=== PATIENT | female | born 1995 | race Caucasian/White ===

== ENCOUNTER 2018-10-07 13:45 | Observation (INO) | payer BC, OTHER ==
--- NOTE | 2018-10-07 13:53 | PDOC ---
Rapid Medical Evaluation Time Seen by Provider: 10/07/18 13:51 Medical Evaluation: 10/07/18 13:51 I have performed a brief in-person evaluation of this patient. The patient presents with a chief complaint of: left sided abdominal pain x2 days Pertinent physical exam findings: OP-WNL. Left abdomen TTP with guarding I have ordered the following: labs, urine, CTAP, strep The patient will proceed to the ED for further evaluation. Discharge Disposition - Diagnosis Abdominal pain - Referrals - Patient Instructions - Post Discharge Activity
[2018-10-07] MEDS ORDERED: SODIUM CHLORIDE 1,864 ML IV ONE (13:54)
--- NOTE | 2018-10-07 14:22 | PDOC ---
History of Present Illness - General Chief Complaint: Pain, Acute Stated Complaint: SENT BY PCP/FEVER Time Seen by Provider: 10/07/18 13:51 - History of Present Illness Initial Comments: 10/07/18 16:49 22yo F no MH sent by PCP Dr Monroe for fever 102.8. Pt has had increased urinary frequency and urgency for 1wk. Denies hx of UTIs or dysuria or hematuria. Then 2 days ago pt developed a subjective fever and headache, intermittent, pounding, bitemporal. Over the past 2 days, pt c/o fatigue, neck pain, lightheadedness, "seeing stars", discomfort with swallowing, one episode of NBNB emesis; and L-sided abdominal pain, sharp, constant, worse with standing /moving/deep breaths. Pt states she had similar sx last year but believes it was just viral and went away on its own. Endorses headaches similar to this but infrequently. Fully immunized, UTD. Denies sick contacts, travel, CP, SOB, vertigo, photophobia, back pain, dysuria, hematuria, D/C, blood in stool, numbness/tingling, focal weakness. Past History - Past Medical History Allergies/Adverse Reactions: Allergies Allergy/AdvReac Type Severity Reaction Status Date / Time No Known Allergies Allergy Verified 10/07/18 13:51 Home Medications: Ambulatory Orders NK [No Known Home Medication] 10/07/18 COPD: Yes - Immunization History Immunization Up to Date: Yes - Suicide/Smoking/Psychosocial Hx Smoking History: Never smoked Hx Alcohol Use: No Drug/Substance Use Hx: No Review of Systems - Review of Systems Comments:: 10/08/18 02:11 Constitutional: Positive for chills, fever, fatigue. HENT: Positive for discomfort with swallowing. Negative for sore throat, rhinorrhea, congestion. Eyes: Positive for "seeing stars." Negative for double vision, photophobia, or blurry vision. Respiratory: Negative for shortness of breath, cough, and wheezing. Cardiovascular: Negative for chest pain, palpitations, and leg swelling. Gastrointestinal: Positive for LUQ pain and 1 episode of emesis. Negative for blood in stool, constipation, diarrhea, nausea. Genitourinary: Positive for increased frequency and urgency. Negative for dysuria, flank pain, and hematuria. Musculoskeletal: Positive for neck pain. Negative for myalgias, back pain. Skin: Negative for rash. Neurological: Positive for headache, light-headedness, dizziness. Negative for syncope, weakness, numbness. Psychiatric/Behavioral: Negative for behavioral problems and confusion. *Physical Exam - Vital Signs Last Vital Signs Temp Pulse Resp BP Pulse Ox 102.8 F H 130 H 18 116/67 100 10/07/18 13:52 10/07/18 13:52 10/07/18 13:52 10/07/18 13:52 10/07/18 13:52 - Physical Exam Comments: 10/08/18 02:07 Gen: Alert, NAD, comfortable-appearing. HEENT: PERRL, EOMI, MMM, NCAT. No conjunctival pallor. Sclera are non-icteric. Oropharynx is clear, no erythema/exudates, uvula midline. No lymph node swelling /TTP. Neck supple, no pain with flexion or extension. CV: Regular rate and rhythm. No murmurs, rubs, or gallops. PULM: No resp distress. CTAB, no wheezes, rales, or rhonchi. ABD: TTP LUQ, soft, ND, no rebound tenderness or guarding, no CVA tenderness. BACK: No TTP of c/t/l-spine. No step-offs or deformities. MSK: No bony deformities. 2+ pulses in all extremities. NEURO: AAOx3. PERRL. CN 2-12 intact. 5/5 strength in all extremities. Sensation to light touch intact in all extremities. No pronator drift. No dysmetria. No dysdiadochokinesia. No abnormal nystagmus. No skew deviation. Normal gait. EXTREMITIES: No cyanosis. No clubbing. No edema. No calf tenderness. PSYCH: Normal mood and thought pattern. SKIN: Warm and dry. Normal capillary refill. No rashes. No jaundice. Heart Score/ECG Review - ECG Impressions Comment:: 10/07/18 17:03 Sinus tachycardia, 113 bpm, normal axis, TWI V2, no STEs ED Treatment Course - LABORATORY CBC & Chemistry Diagram: 10/07/18 14:12 10/07/18 14:12 Medical Decision Making - Medical Decision Making 22yo F no MH sent by PCP Dr Monroe for fever 102.8, increased urinary frequency and urgency x1wk, and 2 days of F/C, headache, fatigue, neck pain, lightheadedness, "seeing stars", discomfort with swallowing, one episode of NBNB emesis, and L-sided abdominal pain. Tachycardic, febrile. Most likely UTI due to initial symptom of urinary frequency/urgency, L-sided abdominal pain, and LUQ TTP. Headache most likely tension headache radiating to neck due to type and location and consistency with previous headaches. No trauma or neurologic deficits concerning for intracranial hemorrhage. Neck supple with full ROM, UTD immunizations, lack of photophobia, and consistency of headache with tension headaches makes meningitis of low concern - no need for further testing at this time. Throat appears normal with no erythema, exudates, or uvula deviation, but discomfort with swallowing indicates possible strep vs viral pharyngitis - strep test already obtained in [facility]. Due to tachycardia and fever, sepsis workup begun in [facility] including 1L IVF. Also consider other infectious etiologies such as cholecystitis or a viral URI - obtain labs and reassess. -Sepsis workup started by [facility] including: --CXR --EKG --CBC, CMP, Coags, VBG, cardiac profile, group A strep, Lact, UA/UC, BC, throat Cx --1L IVF -Add Tylenol for fever -Dispo: pending w/u EKG reviewed. CXR reviewed. No acute findings. Labs reviewed. Of note, WBC 12.7, Cr 1.4, BUN 15.6. UA: + nitrites, 2+ leuk est , 258 WBC, 630 bacteria. UTI on UA. Discussed antibiotic options and benefits and risks/side effects of each. Pt would like to take Bactrim 14 days. Will give 1st dose here and make sure vitals normalized before discharge. 10/07/18 16:16 Pt still tachycardic to 110 and feels warm. Order another 1L IVF and motrin ( last 0700). Will repeat temperature as well. Pt eating sandwich and juice. 10/07/18 17:29 Repeat BP 120/48. Incorrect cuff size was being used - smaller cuff size used for repeat. Pt feeling better. 2nd L IVF being run. Per Dr Palacios, pt spoke with PCP Dr Monroe and decision made to admit. Dr Palacios admitted. *DC/Admit/Observation/Transfer Diagnosis at time of Disposition: Pyelonephritis - Discharge Dispostion Condition at time of disposition: Stable Decision to Admit order: Yes - Referrals - Patient Instructions - Post Discharge Activity
[2018-10-07 14:43] LABS: VENOUS PC02 41.3 mmHg (41-51); VENOUS PH 7.39 (7.31-7.41)
[2018-10-07 14:44] LABS: VENOUS PO2 20.4 mmHg (30-40)
[2018-10-07 14:54] LABS: BASO % 0.1 % (0-2.0); HEMATOCRIT 34.2 % (32.4-45.2); HEMOGLOBIN 11.5 GM/dL (10.7-15.3); LYMPH % 5.2 % (8-40); MCH 31.2 pg (25.7-33.7); MCHC 33.6 g/dl (32.0-36.0); MEAN CELL VOLUME 92.9 fl (80-96); MEAN PLT VOLUME 9.2 fl (7.5-11.1); MONO % 8.8 % (3.8-10.2); NEUT % 85.9 % (42.8-82.8); PLATELET COUNT 157 K/MM3 (134-434); RBC 3.68 M/mm3 (3.60-5.2); RDW 12.5 % (11.6-15.6); WHITE BLOOD COUNT 12.7 K/mm3 (4.0-10.0)
[2018-10-07 15:00] LABS: EPI CELLS 1.4 /HPF (0-5/HPF); HYALINE CASTS 8 /lpf (0-8); PH,URINE 5.5 (5.0-8.0); URINE APPEARANCE CLOUDY; URINE BACTERIA 630.9 /hpf (NEGATIVE); URINE BILIRUBIN NEGATIVE (NEGATIVE); URINE COLOR DK YELLOW; URINE GLUCOSE (UA) NEGATIVE (NEGATIVE); URINE KETONE 2+ (NEGATIVE); URINE LEUK ESTERASE 2+ (NEGATIVE); URINE NITRITE POSITIVE (NEGATIVE); URINE PROTEIN 2+ (NEGATIVE); URINE RBC 4 /hpf (0-4); URINE WBC 258 /hpf (0-5)
[2018-10-07] MEDS ORDERED: ACETAMINOPHEN 500 MG TABLET (FP) PO ONE (15:02)
[2018-10-07 15:08] LABS: ALBUMIN 3.5 g/dl (3.4-5.0); BILIRUBIN,TOTAL 1.1 mg/dL (0.2-1); BLOOD UREA NITROGEN 15.6 mg/dL (7-18); CALCIUM 8.8 mg/dL (8.5-10.1); CREATININE 1.4 mg/dL (0.55-1.3); POTASSIUM 3.9 mmol/L (3.5-5.1); TOT PROT 7.4 g/dl (6.4-8.2)
[2018-10-07] MEDS ORDERED: ACETAMINOPHEN 325 MG TABLET (FP) ONE (15:08)
[2018-10-07 15:10] LABS: INR 1.39 (0.83-1.09); PROTHROMBIN TIME (PATIENT) 16.5 SEC (9.7-13.0)
[2018-10-07 15:12] LABS: ACTIVATED PTT 29.2 SECONDS (25.2-36.5)
[2018-10-07] MEDS ORDERED: SULFAMETHOXAZOLE/TRIMETHOPRIM 800MG/160MG D.S. TABLET PO ONE (15:56)
[2018-10-07] MEDS ORDERED: SODIUM CHLORIDE 0.9% 500 ML INFUS.BAG IV ONE (16:05)
--- NOTE | 2018-10-07 16:05 | PDOC ---
Documentation entered by Jacqueline Chris SCRIBE, acting as scribe for Kevin Stewart MD. Kevin Stewart MD: This documentation has been prepared by the scribe, Jacqueline Chris SCRIBE, under my direction and personally reviewed by me in its entirety. I confirm that the documentation accurately reflects all work, treatment, procedures, and medical decision making performed by me. Attending Attestation - Resident Resident Name: AdityaVeena - ED Attending Attestation I have performed the following: I have examined & evaluated the patient, The case was reviewed & discussed with the resident, I agree w/resident's findings & plan, Exceptions are as noted - HPI HPI: 10/07/18 15:02 22y F no known pmhx presents with complaint of fever/headache/abdominal pain. Pt endorses having urinary freuqency for approx 1 week, followed by fever/ headache/abd pain x 3 days. She went to her PMD who referred her to the ED for evlauation. The pt endorses nbnb vomiting x 1, denies any cp, sob, cough, diarrhea, melena, bpr. GENERAL: The patient is awake, alert, and fully oriented, Nontoxic - in no acute distress. HEAD: Normocephalic, atraumatic. EYES: extraocular movements intact, sclera anicteric, conjunctiva clear. ENT: Normal voice, Moist mucous membranes. NECK: Normal range of motion, supple, negative brusiznski/kernigs LUNGS: Breath sounds equal, clear to auscultation bilaterally. No wheezes, no rhonchi, no rales. HEART: tachycardic, normal S1 and S2 without murmur, rub or gallop. ABDOMEN: L CVA tenderness, mild L abd pain EXTREMITIES: Normal range of motion, no edema. NEUROLOGICAL: No facial assymetry, Normal speech, PSYCH: Normal mood, normal affect. SKIN: hot to touch, Dry, normal turgor, - Physicial Exam PE: 10/07/18 17:28 see above - Medical Decision Making 10/07/18 15:25 lbas reviewed UA + = suspect pyelonephritis will continue to hyration and tx with abx 10/07/18 17:28 pt appears well and feeling better in no distress labs reviewed +leukocytosis pt stll slightly tachy, suspect driven by fever. given motrin, awaiting fever defeversence and reassess signed out to evening team 10/07/18 17:29 Heart Score/ECG Review - ECG Impressions Comment:: 10/07/18 16:02 Twelve-lead EKG was performed and reviewed by me. There is normal sinus rhythm with a rate of 113 The axis is normal. The intervals are normal. There is normal R wave progression There are no ST or T wave abnormalities. sinus tachycardia
[2018-10-07] MEDS ORDERED: IBUPROFEN 600 MG TABLET (FP) PO ONE ×2 (16:15→16:55)
[2018-10-07] MEDS ORDERED: SULFAMETHOXAZOLE/TRIMETHOPRIM 800MG/160MG D.S. TABLET ONE (16:55)
--- NOTE | 2018-10-07 17:04 | EKG ---
Test Reason : Blood Pressure : / mmHG Vent. Rate : 113 BPM Atrial Rate : 113 BPM P-R Int : 142 ms QRS Dur : 076 ms QT Int : 304 ms P-R-T Axes : 044 013 028 degrees QTc Int : 416 ms SINUS TACHYCARDIA POSSIBLE LEFT ATRIAL ENLARGEMENT BORDERLINE ECG NO PREVIOUS ECGS AVAILABLE Confirmed by MD Lan, Mitch ([id number]) on 10/07/2018 5:03:36 PM Referred By: Confirmed By:Mitch Montenegro MD
--- NOTE | 2018-10-07 17:56 | PDOC ---
*Physical Exam - Vital Signs Last Vital Signs Temp Pulse Resp BP Pulse Ox 99.5 F 108 H 18 92/40 L 99 10/07/18 17:00 10/07/18 17:00 10/07/18 13:52 10/07/18 17:00 10/07/18 17:00 ED Treatment Course - LABORATORY CBC & Chemistry Diagram: 10/07/18 14:12 10/07/18 14:12 - ADDITIONAL ORDERS Additional order review: Laboratory Results 10/07/18 10/07/18 10/07/18 14:12 14:12 14:12 PT with INR INR PTT (Actin FS) VBG pH 7.39 POC VBG pCO2 41.3 POC VBG pO2 20.4 L VBG HCO3 24.2 VBG O2 Sat (Jennie) 27.8 L VBG Base Excess -0.3 Sodium Potassium Chloride Carbon Dioxide Anion Gap BUN Creatinine Est GFR (CKD-EPI)AfAm Est GFR (CKD-EPI)NonAf Random Glucose Lactic Acid Calcium Total Bilirubin AST ALT Alkaline Phosphatase Troponin I Total Protein Albumin Urine Color Dk yellow Urine Appearance Cloudy Urine pH 5.5 Ur Specific Filer 1.021 Urine Protein 2+ H Urine Glucose (UA) Negative Urine Ketones 2+ H Urine Blood 2+ H Urine Nitrite Positive H Urine Bilirubin Negative Urine Urobilinogen 1.0 Ur Leukocyte Esterase 2+ H Urine WBC (Auto) 258 Urine RBC (Auto) 4 Urine Casts (Auto) 8 U Epithel Cells (Auto) 1.4 Urine Bacteria (Auto) 630.9 Urine HCG, Qual Negative 10/07/18 10/07/18 10/07/18 14:12 14:12 14:12 PT with INR 16.50 H INR 1.39 H PTT (Actin FS) 29.2 VBG pH POC VBG pCO2 POC VBG pO2 VBG HCO3 VBG O2 Sat (Jennie) VBG Base Excess Sodium 135 L Potassium 3.9 Chloride 101 Carbon Dioxide 24 Anion Gap 10 BUN 15.6 Creatinine 1.4 H Est GFR (CKD-EPI)AfAm 62.09 Est GFR (CKD-EPI)NonAf 53.57 Random Glucose 101 Lactic Acid Calcium 8.8 Total Bilirubin 1.1 H AST 12 L ALT 16 Alkaline Phosphatase 64 Troponin I < 0.02 Total Protein 7.4 Albumin 3.5 Urine Color Urine Appearance Urine pH Ur Specific Filer Urine Protein Urine Glucose (UA) Urine Ketones Urine Blood Urine Nitrite Urine Bilirubin Urine Urobilinogen Ur Leukocyte Esterase Urine WBC (Auto) Urine RBC (Auto) Urine Casts (Auto) U Epithel Cells (Auto) Urine Bacteria (Auto) Urine HCG, Qual 10/07/18 14:00 PT with INR INR PTT (Actin FS) VBG pH POC VBG pCO2 POC VBG pO2 VBG HCO3 VBG O2 Sat (Jennie) VBG Base Excess Sodium Potassium Chloride Carbon Dioxide Anion Gap BUN Creatinine Est GFR (CKD-EPI)AfAm Est GFR (CKD-EPI)NonAf Random Glucose Lactic Acid 1.4 Calcium Total Bilirubin AST ALT Alkaline Phosphatase Troponin I Total Protein Albumin Urine Color Urine Appearance Urine pH Ur Specific Filer Urine Protein Urine Glucose (UA) Urine Ketones Urine Blood Urine Nitrite Urine Bilirubin Urine Urobilinogen Ur Leukocyte Esterase Urine WBC (Auto) Urine RBC (Auto) Urine Casts (Auto) U Epithel Cells (Auto) Urine Bacteria (Auto) Urine HCG, Qual 10/07/18 14:12 RBC 3.68 MCV 92.9 MCHC 33.6 RDW 12.5 MPV 9.2 Neutrophils % 85.9 H Lymphocytes % 5.2 L Monocytes % 8.8 Eosinophils % 0.0 Basophils % 0.1 - RADIOLOGY Radiology Studies Ordered: Category Date Time Status KIDNEY / RENAL US [US] Stat Ultrasound 10/07/18 17:50 Ordered - Medications Given in the ED: ED Medications Discontinued Medications Generic Name Dose Route Start Last Admin Trade Name Freq PRN Reason Stop Dose Admin Acetaminophen 975 mg 10/07/18 15:02 10/07/18 15:10 Tylenol - PO 10/07/18 15:03 975 mg ONCE ONE Administration Sodium Chloride 1,864 mls @ 932 mls/hr 10/07/18 13:54 10/07/18 14:22 Normal Saline - 30 ml/kg infuse over 2 hr (1864 ml) 10/07/18 15:53 932 mls/ hr IV Administration ONCE ONE Ibuprofen 600 mg 10/07/18 16:15 10/07/18 16:59 Motrin - PO 10/07/18 16:16 600 mg ONCE ONE Administration Sodium Chloride 1,000 ml 10/07/18 16:05 10/07/18 16:58 Normal Saline - IV 10/07/18 16:06 1,000 ml ONCE ONE Administration Trimethoprim/Sulfamethoxazole 1 each 10/07/18 15:56 10/07/18 16:58 Bactrim Ds - PO 10/07/18 15:57 1 each ONCE ONE Administration Medical Decision Making - Medical Decision Making 10/07/18 17:[address] Benigno Monroe, requesting admission. Options discussed with patient, now says that she wants to stay. Admission ordered. Kidney US requested, ordered. Patient accepted by Dr Monroe. *DC/Admit/Observation/Transfer Diagnosis at time of Disposition: Pyelonephritis - Discharge Dispostion Condition at time of disposition: Stable - Referrals Referrals: Benigno Monroe MD [Staff Physician] - - Patient Instructions Printed Discharge Instructions: DI for Kidney Infection Additional Instructions: You have been seen in the Emergency Department for your fever, headaches, and left-sided stomach pain. Your tests show that you have a UTI (Urinary tract infection) which appears to involve your bladder and kidney. We have prescribed you Bactrim, an antibiotic. Take it as directed on the bottle: two times a day for 14 days. Even if you feel better, make sure you finish all the doses. Follow-up with your primary care doctor Dr. Monroe within 1 week. Return to the ED immediately if you can't keep down your food or medications, or experience vomiting, severe pain, or any other new or worsening symptom. - Post Discharge Activity
--- NOTE | 2018-10-07 18:21 | HP ---
Admitting History and Physical - Admission Chief Complaint: c/o increased urination chill temp headache n/v all x 2 days. u/a showed in my office ketosis and blood ? may be spoty menses. excruciating lt sided abd pain scale. admiited pt under observation ordered sono kidneys at the reluctance of [age] yr resident whom wanted to send her home. pt n/v can not keep food down nor ? atxbs r/o out stones ect gram neg seosis high mortality sedpyleonephrits preven abcess scarring in kidneys not unresonable to admitt at least observation plus cr 1.4 in 22 yr old pt History Source: Patient Limitations to Obtaining History: No Limitations - Past Medical History Gastrointestinal: Yes: Other (lt side pain) Renal/: Yes: Renal Inusuff, Hematuria Infectious Disease: Yes: Other (pyleonephitis) - Past Surgical History Past Surgical History: Yes: None - Smoking History Smoking history: Never smoked - Alcohol/Substance Use Hx Alcohol Use: No History of Substance Use: reports: None - Social History Usual Living Arrangement: Yes: With Parent ADL: Independent History of Recent Travel: No Home Medications - Allergies Allergies/Adverse Reactions: Allergies Allergy/AdvReac Type Severity Reaction Status Date / Time No Known Allergies Allergy Verified 10/07/18 13:51 - Home Medications Home Medications: Ambulatory Orders NK [No Known Home Medication] 10/07/18 Family Disease History - Family Disease History Family History: Unremarkable Review of Systems - Review of Systems Constitutional: reports: Loss of Appetite HENT: reports: No Symptoms Neck: reports: No Symptoms Cardiovascular: reports: No Symptoms Respiratory: reports: No Symptoms Gastrointestinal: reports: Abdominal Pain Genitourinary: reports: Frequency, Hematuria Breasts: reports: No Symptoms Reported Musculoskeletal: reports: No Symptoms Integumentary: reports: No Symptoms Neurological: reports: No Symptoms Endocrine: reports: No Symptoms Hematology/Lymphatic: reports: No Symptoms Psychiatric: reports: No Symptoms Physical Examination Vital Signs: Vital Signs Temperature 99.5 F 10/07/18 17:00 Pulse Rate 108 H 10/07/18 17:00 Respiratory Rate 18 10/07/18 13:52 Blood Pressure 92/40 L 10/07/18 17:00 O2 Sat by Pulse Oximetry (%) 99 10/07/18 17:00 Labs: CBC, BMP 10/07/18 14:12 10/07/18 14:12 Problem List - Problems (1) Acute renal insufficiency Code(s): N28.9 - DISORDER OF KIDNEY AND URETER, UNSPECIFIED (2) Starvation ketoacidosis Code(s): E87.2 - ACIDOSIS Assessment/Plan renal sono víctor iv antibiotics iv hydration zofran iv id ? consult liq diet chk renal cbc in am
[2018-10-07] MEDS ORDERED: ONDANSETRON 4 MG/2 ML VIAL IVPUSH PRN (18:29)
[2018-10-07] MEDS ORDERED: CEFTRIAXONE 1 GM in DEXTROSE 5%-WATER - 50 ML IVPB ONE (18:43)
[2018-10-07] MEDS ORDERED: CEFTRIAXONE 1 GM/50 ML BAG ONE (18:56)
[2018-10-07 19:53] VITALS: BMI 24.7
[2018-10-07] MEDS ORDERED: cefTRIAXone SODIUM 1 GM VIAL ONE (20:48)
[2018-10-07] MEDS ORDERED: DEXTROSE 5%-WATER - 50 ML IVPB ONE (20:48)
[2018-10-07] MEDS: DEXTROSE 5%-0.45% SALINE 1,000 ML IV SCH (20:50)
[2018-10-08 07:41] LABS: BASO % 0.1 % (0-2.0); EOS % 0.1 % (0-4.5); HEMATOCRIT 30.3 % (32.4-45.2); HEMOGLOBIN 10.4 GM/dL (10.7-15.3); LYMPH % 5.8 % (8-40); MCH 31.6 pg (25.7-33.7); MCHC 34.3 g/dl (32.0-36.0); MEAN CELL VOLUME 92.2 fl (80-96); MEAN PLT VOLUME 8.8 fl (7.5-11.1); MONO % 7.7 % (3.8-10.2); NEUT % 86.3 % (42.8-82.8); PLATELET COUNT 136 K/MM3 (134-434); RBC 3.28 M/mm3 (3.60-5.2); RDW 12.8 % (11.6-15.6); WHITE BLOOD COUNT 6.7 K/mm3 (4.0-10.0)
[2018-10-08] MEDS: DEXTROSE 5%-0.45% SALINE 1,000 ML IV SCH ×3 (08:19→18:47)
[2018-10-08 08:34] LABS: ALBUMIN 2.7 g/dl (3.4-5.0); BILIRUBIN,TOTAL 0.6 mg/dL (0.2-1); BLOOD UREA NITROGEN 9.4 mg/dL (7-18); CALCIUM 8.2 mg/dL (8.5-10.1); POTASSIUM 3.7 mmol/L (3.5-5.1); TOT PROT 5.9 g/dl (6.4-8.2)
[2018-10-08] MEDS: ACETAMINOPHEN 325 MG TABLET (FP) PO PRN ×2 (11:13→18:45)
--- NOTE | 2018-10-08 14:21 | PN ---
Progress Note (short form) - Note Progress Note: ID consult dictated imp/reccd 22 yo female with pyelonephritis (left) never had UTI before some nausea and vomiting +ketones in her urine cr 1.4 renal sonogram normal would continue ivf and rocephin will f/u cultures olena resolved Problem List - Problems (1) Pyelonephritis Code(s): N12 - TUBULO-INTERSTITIAL NEPHRITIS, NOT SPCF ACUTE OR CHRONIC (2) Acute renal insufficiency Code(s): N28.9 - DISORDER OF KIDNEY AND URETER, UNSPECIFIED
[2018-10-08] MEDS ORDERED: cefTRIAXone SODIUM 1 GM VIAL ONE (14:47)
[2018-10-08] MEDS ORDERED: DEXTROSE 5%-WATER - 50 ML IVPB ONE (14:47)
[2018-10-08] MEDS: CEFTRIAXONE 1 GM in DEXTROSE 5%-WATER - 50 ML IVPB SCH (15:08)
--- NOTE | 2018-10-08 15:33 | PN ---
Progress Note, Physician Chief Complaint: lt flank pain less vss tolerating liq diet nl bm temps lower - Current Medication List Current Medications: Active Medications Acetaminophen (Tylenol -) 650 mg PO Q4H PRN PRN Reason: FEVER Last Admin: 10/08/18 11:13 Dose: 650 mg Dextrose/Sodium Chloride (D5-1/2ns -) 1,000 mls @ 75 mls/hr IV ASDIR ADELINA Last Admin: 10/08/18 15:08 Dose: 75 mls/hr Ceftriaxone Sodium 1 gm/ (Dextrose) 50 mls @ 200 mls/hr IVPB DAILY ADELINA; Protocol Last Admin: 10/08/18 15:08 Dose: 200 mls/hr Ondansetron HCl (Zofran Injection) 4 mg IVPUSH Q6H PRN PRN Reason: NAUSEA Last Admin: 10/08/18 06:13 Dose: 4 mg - Objective Vital Signs: Vital Signs Temperature 99.1 F 10/08/18 14:35 Pulse Rate 88 10/08/18 14:35 Respiratory Rate 20 10/08/18 07:00 Blood Pressure 103/51 L 10/08/18 14:35 O2 Sat by Pulse Oximetry (%) 98 10/07/18 19:46 Constitutional: Yes: No Distress Eyes: Yes: WNL HENT: Yes: WNL Neck: Yes: WNL, Tenderness Cardiovascular: Yes: WNL Respiratory: Yes: WNL Gastrointestinal: Yes: Tenderness ...Rectal Exam: Yes: Deferred Genitourinary: Yes: Polyuria Breast(s): Yes: WNL Musculoskeletal: Yes: WNL Extremities: Yes: WNL, Shortened Integumentary: Yes: WNL Wound/Incision: Yes: Clean/Dry Neurological: Yes: WNL ...Motor Strength: WNL Psychiatric: Yes: WNL Labs: CBC, BMP 10/08/18 07:15 10/08/18 07:06 INR, PTT INR 1.39 (0.83-1.09) H 10/07/18 14:12 Problem List - Problems (1) Acute renal insufficiency Code(s): N28.9 - DISORDER OF KIDNEY AND URETER, UNSPECIFIED (2) Starvation ketoacidosis Code(s): E87.2 - ACIDOSIS Assessment/Plan cont diet reg advanced cont axtb as is ? d/c in am
--- NOTE | 2018-10-08 17:14 | CONS ---
DATE OF CONSULTATION: 10/08/2018 CONSULTATION REQUESTED BY: Benigno Monroe MD HISTORY OF PRESENT ILLNESS: The patient is a 22-year-old woman who is otherwise quite healthy. She has never been hospitalized. She has never had a UTI. She presented to her primary care doctor with complaints of headache, fevers and chills for two days and she was sent to the emergency room. She has had no appetite. She has not been eating. She had an episode of nausea and vomiting. She was seen in the emergency room where she had a fever of 102.8. She had left-sided flank pain. She had an episode of emesis. She had a urinalysis with ketones. She was admitted for hydration and IV antibiotics. PAST MEDICAL HISTORY: Unremarkable. PAST SURGICAL HISTORY: No surgeries. SOCIAL HISTORY: She lives with her father. She is independent. 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 She has no history of recent travel. There is no history of cigarette or substance use. FAMILY HISTORY: Unremarkable. ALLERGIES: No known drug allergies. HOME MEDICATIONS: She takes no medications. PHYSICAL EXAMINATION: General: Vital Signs: Her T-max was 102.8 earlier this morning. It was also 102.8 in the ER yesterday. Her current temperature is 99.1. Pulse is 88. Blood pressure 103/51. She reports that her headaches have resolved. HEENT: Normocephalic. Her eyes are anicteric. She has no pharyngeal exudate. Her tonsils are small. She has no thrush. She has good dentition. Neck: Supple. Lungs: Clear to auscultation. Heart: Regular rate and rhythm. Abdomen: Soft, nontender. She has left CVA tenderness to palpation. She has no suprapubic pain. Extremities: No edema. LABORATORY DATA: Notable for a white count on admission of 12.7. Today, it is 6.7. Hemoglobin is 10.4, platelets are 136. Her BUN and creatinine were 15 and 1.4 on admission. On repeat, they are now 94 and 1. Liver function tests are normal. Urinalysis shows 2+ leukocytes with 258 white cells. A test is negative. Cultures are pending. She had a throat culture that was negative for group B strep. She had a renal sonogram that shows normal kidneys with no hydro. She had a chest x-ray that shows no acute pathology. IN SUMMARY: 1. This is a 22-year-old woman admitted with acute pyelonephritis, left kidney, with no prior antibiotic experience. I would continue her on ceftriaxone. I would continue IV fluids and follow up cultures. 2. Acute renal insufficiency, presenting with a creatinine of 1.4 that appears improved with hydration. Her creatinine is now 1. Would continue hydration for now. Can hopefully transition to oral antibiotics in the morning. EMIL BEE M.D. [id number]
[2018-10-09] MEDS: DEXTROSE 5%-0.45% SALINE 1,000 ML IV SCH (01:22)
[2018-10-09 06:14] VITALS: TEMP 99.5
[2018-10-09 08:25] LABS: BASO % 0.1 % (0-2.0); EOS % 0.2 % (0-4.5); HEMATOCRIT 28.7 % (32.4-45.2); HEMOGLOBIN 9.8 GM/dL (10.7-15.3); LYMPH % 18.9 % (8-40); MCH 31.6 pg (25.7-33.7); MCHC 34.3 g/dl (32.0-36.0); MEAN PLT VOLUME 8.3 fl (7.5-11.1); NEUT % 70.8 % (42.8-82.8); PLATELET COUNT 160 K/MM3 (134-434); RBC 3.12 M/mm3 (3.60-5.2); RDW 12.6 % (11.6-15.6); WHITE BLOOD COUNT 5.2 K/mm3 (4.0-10.0)
[2018-10-09 08:53] LABS: BLOOD UREA NITROGEN 3.7 mg/dL (7-18); CALCIUM 8.3 mg/dL (8.5-10.1); CREATININE 0.9 mg/dL (0.55-1.3); POTASSIUM 3.3 mmol/L (3.5-5.1)
[2018-10-09] MEDS ORDERED: DEXTROSE 5%-WATER - 50 ML IVPB ONE (10:20)
[2018-10-09] MEDS ORDERED: cefTRIAXone SODIUM 1 GM VIAL ONE (10:20)
[2018-10-09] MEDS: CEFTRIAXONE 1 GM in DEXTROSE 5%-WATER - 50 ML IVPB SCH (10:23)
[2018-10-09] MEDS ORDERED: POTASSIUM CHLORIDE ORAL LIQUID 20 MEQ/15 ML PO ONE (10:34)
--- NOTE | 2018-10-09 10:37 | DS ---
Physical Examination Vital Signs: Vital Signs Temperature 99.5 F 10/09/18 06:13 Pulse Rate 83 10/09/18 06:13 Respiratory Rate 21 H 10/09/18 06:13 Blood Pressure 104/61 10/09/18 06:13 O2 Sat by Pulse Oximetry (%) 98 10/09/18 02:00 Constitutional: Yes: Well Nourished Eyes: Yes: WNL HENT: Yes: WNL Neck: Yes: WNL Cardiovascular: Yes: WNL Respiratory: Yes: WNL Gastrointestinal: Yes: WNL ...Rectal Exam: Yes: Deferred Renal/: Yes: WNL Breast(s): Yes: WNL Musculoskeletal: Yes: WNL Extremities: Yes: WNL Edema: No Peripheral Pulses WNL: Yes Integumentary: Yes: WNL Neurological: Yes: WNL ...Motor Strength: WNL Psychiatric: Yes: WNL Labs: CBC, BMP 10/09/18 08:09 10/09/18 08:09 Discharge Summary Reason For Visit: PYELONEPHRITIS Current Active Problems Acute renal insufficiency (Acute) Pyelonephritis (Acute) Starvation ketoacidosis (Acute) Condition: Good - Instructions Diet, Activity, Other Instructions: appt w me saturday 1200 noon po antxb Disposition: HOME - Home Medications Comprehensive Discharge Medication List: Ambulatory Orders NK [No Known Home Medication] 10/07/18
[2018-10-09 12:07] VITALS: BP 117/64; PULSE 99
--- NOTE | 2018-10-09 12:24 | DS ---
Physical Examination Vital Signs: Vital Signs Temperature 99.5 F 10/09/18 10:00 Pulse Rate 99 H 10/09/18 10:00 Respiratory Rate 20 10/09/18 10:00 Blood Pressure 117/64 10/09/18 10:00 O2 Sat by Pulse Oximetry (%) 100 10/09/18 10:00 Labs: CBC, BMP 10/09/18 08:09 10/09/18 08:09 Discharge Summary Reason For Visit: PYELONEPHRITIS Current Active Problems Acute renal insufficiency (Acute) Pyelonephritis (Acute) Starvation ketoacidosis (Acute) Condition: Good - Instructions Diet, Activity, Other Instructions: appt w me saturday 1200 noon po antxb Disposition: HOME - Home Medications Comprehensive Discharge Medication List: Ambulatory Orders NK [No Known Home Medication] 10/07/18
== END 2018-10-09 13:23 | disposition home or self-care (01) ==
LOC: JER 13:45 → JERBED 17:54 → UNDOADMOB 17:54 → INTOOBSV 17:54 → JERBED 18:26 → J6S 19:03
PROVIDERS: ADMIT Family Medicine; ATTEND Family Medicine
PROC: 3E03329 Introduction of Other Anti-infective into Peripheral Vein, Percutaneous Approach (ICD-10-PCS; principal; 2018-10-07)
PROC: 3E0337Z Introduction of Electrolytic and Water Balance Substance into Peripheral Vein, Percutaneous Approach (ICD-10-PCS; 2018-10-07)
PROC: 3E033GC Introduction of Other Therapeutic Substance into Peripheral Vein, Percutaneous Approach (ICD-10-PCS; 2018-10-07)
DX: N10 Acute pyelonephritis (principal); N28.9 Disorder of kidney and ureter, unspecified; E87.2 Acidosis
CPT/HCPCS: 36415; 71045-TC-FY; 76775-TC; 80048; 80053; 81003; 82803; 83605; 84484; 84703; 85025; 85610; 85730; 87040; 87070; 87086; 87186; 87880; 93005; 93010; 99284-25; G0378; J7030

== ENCOUNTER 2020-03-22 13:30 | Inpatient (IN) | payer BC, OTHER ==
[2020-03-22] MEDS ORDERED: PROMETHAZINE HCL 25 MG/1 ML VIAL IVPUSH ONE (14:28)
[2020-03-22] MEDS ORDERED: BUTORPHANOL TARTRATE 1 MG/ML VIAL IVPB PRN (14:28)
[2020-03-22] MEDS ORDERED: DINOPROSTONE 10 MG VAGINAL SUPPOSITORY VG ONE (14:34)
[2020-03-22 15:36] VITALS: BMI 31.2
[2020-03-22 15:48] LABS: BASO % 0.2 % (0-2.0); EOS % 1.1 % (0-4.5); HEMATOCRIT 28.7 % (32.4-45.2); HEMOGLOBIN 9.2 GM/dL (10.7-15.3); LYMPH % 18.9 % (8-40); MCH 25.2 pg (25.7-33.7); MCHC 32.1 g/dl (32.0-36.0); MEAN CELL VOLUME 78.6 fl (80-96); MEAN PLT VOLUME 9.7 fl (7.5-11.1); MONO % 7.9 % (3.8-10.2); NEUT % 71.9 % (42.8-82.8); PLATELET COUNT 207 K/MM3 (134-434); RBC 3.65 M/mm3 (3.60-5.2); RDW 15.2 % (11.6-15.6); WHITE BLOOD COUNT 7.5 K/mm3 (4.0-10.0)
[2020-03-22 16:10] LABS: POTASSIUM 4.4 mmol/L (3.5-5.1)
[2020-03-22 16:11] LABS: BLOOD UREA NITROGEN 8.9 mg/dL (7-18); CALCIUM 9.1 mg/dL (8.5-10.1)
[2020-03-22 16:15] LABS: CREATININE 0.8 mg/dL (0.55-1.3)
[2020-03-22 16:26] LABS: INR 0.94 (0.83-1.09); PROTHROMBIN TIME (PATIENT) 11.6 SEC (9.7-13.0)
[2020-03-22 16:29] LABS: ACTIVATED PTT 24.2 SECONDS (25.2-36.5)
[2020-03-22] MEDS: ELECTROLYTE-148 SOLN 1,000 ML IV SCH (19:45)
[2020-03-23] MEDS ORDERED: OXYTOCIN 30 UNITS in 0.9% NS 30 UNIT/500 ML INFUS.BAG IVPB ONE (01:45)
[2020-03-23] MEDS ORDERED: OXYTOCIN 30 UNITS in 0.9% NS 30 UNIT/500 ML INFUS.BAG IVPB SCH ×2 (01:45→03:15)
[2020-03-23] MEDS ORDERED: AMPICILLIN - 2 GM in SODIUM CHLORIDE 100 ML IVPB ONE (03:01)
[2020-03-23] MEDS ORDERED: AMPICILLIN SODIUM 2 GM VIAL ONE (03:38)
[2020-03-23] MEDS ORDERED: PROMETHAZINE HCL 25 MG/1 ML VIAL ONE (04:14)
[2020-03-23] MEDS ORDERED: BUTORPHANOL TARTRATE 1 MG/ML VIAL ONE ×2 (04:14)
[2020-03-23] MEDS ORDERED: AMPICILLIN SODIUM 1 GM VIAL ONE ×2 (06:32→11:09)
[2020-03-23] MEDS: AMPICILLIN - 1 GM in SODIUM CHLORIDE 100 ML IVPB SCH ×2 (06:57→11:00)
[2020-03-23] MEDS ORDERED: PCA PUMP NR ONE (06:58)
[2020-03-23] MEDS ORDERED: FENTANYL/BUPIVACAINE/NS/PF - PCEA - 50 ML DISP.SYRIN EP ONE ×2 (06:58→11:13)
[2020-03-23] MEDS: ELECTROLYTE-148 SOLN 1,000 ML IV SCH ×2 (07:00→19:54)
[2020-03-23] MEDS ORDERED: BUPIVACAINE HCL/PF 0.25% (2.5MG/ML) 10 ML VIAL ONE (07:08)
[2020-03-23] MEDS ORDERED: FENTANYL/BUPIVACAINE/NS/PF - PCEA - 50 ML DISP.SYRIN EP SCH (07:30)
[2020-03-23] MEDS ORDERED: NALOXONE HCL 0.4 MG/ML VIAL IVPUSH PRN (07:30)
[2020-03-23] MEDS ORDERED: OXYTOCIN 20 UNITS in 0.9% NS 20 UNIT/1,000 ML INFUS.BAG IV ONE ×2 (14:03→16:25)
[2020-03-23] MEDS: OXYTOCIN 20 UNITS in 0.9% NS 20 UNIT/1,000 ML INFUS.BAG IV SCH ×2 (14:40→18:30)
[2020-03-23] MEDS ORDERED: BENZOCAINE 20% 57 GM BOTTLE TP PRN (14:43)
[2020-03-23] MEDS ORDERED: BISACODYL 10 MG SUPP.RECT RC PRN (14:43)
[2020-03-23] MEDS ORDERED: BENZOCAINE 28 GM HEMORRHOIDAL OINTMENT TP PRN (14:43)
[2020-03-23] MEDS ORDERED: ACETAMINOPHEN 325 MG TABLET (FP) PO PRN (14:43)
[2020-03-23] MEDS ORDERED: oxyCODONE HCL 5 MG TABLET PO PRN (14:43)
[2020-03-23] MEDS ORDERED: METHYLERGONOVINE MALEATE 0.2 MG/1 ML AMP IM PRN (14:43)
[2020-03-23] MEDS ORDERED: WITCH HAZEL 50% (TUCKS) 40 PAD/JAR PAD TP PRN (14:43)
[2020-03-23] MEDS ORDERED: IBUPROFEN 600 MG TABLET (FP) PO PRN (14:43)
[2020-03-23 15:07] LABS: CORD HCO3 22.9 mmHg (20-29); CORD PCO2 58.8 mmHg (30-78); CORD pH 7.208 (7.14-7.44)
[2020-03-23 15:10] LABS: CORD BASE EXCESS -5.5 mmol/L (0-2); CORD HCO3 20.5 mmHg (20-29); CORD PCO2 41.5 mmHg (30-78); CORD pH 7.311 (7.14-7.44)
[2020-03-23 17:19] LABS: BASO % 0.3 % (0-2.0); HEMATOCRIT 26.2 % (32.4-45.2); HEMOGLOBIN 8.1 GM/dL (10.7-15.3); LYMPH % 3.4 % (8-40); MCH 24.6 pg (25.7-33.7); MCHC 30.9 g/dl (32.0-36.0); MEAN CELL VOLUME 79.5 fl (80-96); MEAN PLT VOLUME 9.6 fl (7.5-11.1); MONO % 5.5 % (3.8-10.2); NEUT % 90.8 % (42.8-82.8); PLATELET COUNT 191 K/MM3 (134-434); RBC 3.29 M/mm3 (3.60-5.2); RDW 15.4 % (11.6-15.6); WHITE BLOOD COUNT 14.4 K/mm3 (4.0-10.0)
[2020-03-23] MEDS: PRENATAL VITAMINS W/ FOLIC ACID TABLET (FP) PO SCH (17:58)
[2020-03-23 18:34] LABS: PLATELET ESTIMATE ADEQUATE
[2020-03-24 09:00] LABS: BASO % 0.2 % (0-2.0); EOS % 0.6 % (0-4.5); HEMATOCRIT 20.3 % (32.4-45.2); LYMPH % 14.5 % (8-40); MCH 24.9 pg (25.7-33.7); MEAN PLT VOLUME 9.7 fl (7.5-11.1); MONO % 7.2 % (3.8-10.2); NEUT % 77.5 % (42.8-82.8); PLATELET COUNT 180 K/MM3 (134-434); RDW 15.6 % (11.6-15.6); WHITE BLOOD COUNT 12.2 K/mm3 (4.0-10.0)
[2020-03-24] MEDS ORDERED: DIPHTH,PERTUSS(ACELL),TET 0.5 ML DISP.SYRIN IM ONE (10:00)
[2020-03-24] MEDS ORDERED: FLU VACCINE (FLULAVAL) PF 60 MCG/0.5 ML SYRINGE 2020-2021 IM ONE (10:00)
[2020-03-24 10:12] LABS: HEMOGLOBIN 6.5 GM/dL (10.7-15.3)
[2020-03-24] MEDS: PRENATAL VITAMINS W/ FOLIC ACID TABLET (FP) PO SCH (11:15)
[2020-03-24] MEDS ORDERED: SENNOSIDES/DOCUSATE COMBO (SENNA PLUS) TABLET (UD) PO PRN (22:00)
[2020-03-25 08:47] LABS: HEMATOCRIT 28.3 % (32.4-45.2); HEMOGLOBIN 9.3 GM/dL (10.7-15.3); MCH 26.7 pg (25.7-33.7); MEAN PLT VOLUME 9.3 fl (7.5-11.1); PLATELET COUNT 212 K/MM3 (134-434); RDW 15.9 % (11.6-15.6); WHITE BLOOD COUNT 9.7 K/mm3 (4.0-10.0)
[2020-03-25] MEDS: PRENATAL VITAMINS W/ FOLIC ACID TABLET (FP) PO SCH (10:05)
[2020-03-25 11:25] VITALS: BP 111/66; PULSE 79; TEMP 97.9
== END 2020-03-25 11:55 | disposition home or self-care (01) | DRG 806 ==
LOC: JLDR 13:30 → J3W 03-23 16:40
PROVIDERS: ADMIT Obstetrics & Gynecology; ATTEND Obstetrics & Gynecology
PROC: 3E0P7VZ Introduction of Hormone into Female Reproductive, Via Natural or Artificial Opening (ICD-10-PCS; 2020-03-22)
PROC: 10E0XZZ Delivery of Products of Conception, External Approach (ICD-10-PCS; 2020-03-23)
PROC: 30233N1 Transfusion of Nonautologous Red Blood Cells into Peripheral Vein, Percutaneous Approach (ICD-10-PCS; principal; 2020-03-24)
DX: O48.0 Post-term pregnancy (principal); O72.1 Other immediate postpartum hemorrhage; Z37.0 Single live birth; O90.81 Anemia of the puerperium; D64.9 Anemia, unspecified; O99.824 Streptococcus B carrier state complicating childbirth; Z3A.40 40 weeks gestation of pregnancy
CPT/HCPCS: 36415; 36430; 36511; 36600; 59409; 80048; 82803; 85025; 85027; 85610; 85730; 86780; 86850; 86900; 86901; 86922; 90715; C9803; G0008; P9038; P9058; Q2036; U0003